=== PATIENT | female | born 1950 | race Caucasian/White ===

== ENCOUNTER 2016-07-02 16:13 | Observation (INO) ==
[2016-07-02] MEDS ORDERED: Ipratropium/Albuterol Neb 3 ML IH ONE (16:19)
[2016-07-02] MEDS ORDERED: Levofloxacin 500 MG/100 ML 500 MG/100 ML BAG IVPB ONE (16:25)
[2016-07-02] MEDS ORDERED: 0.9 % Sodium Chloride 1,000 ML IVC ONE (16:25)
--- NOTE | 2016-07-02 16:25 | Emergency Department Note ---
Disposition Clinical Impression: Acute exacerbation of chronic obstructive airways disease Disposition: Admitted As Inpatient Condition: Fair Forms: ED Satisfaction Letter Time of Disposition: 17:29 SOB HPI - General Chief Complaint: ED Shortness of Breath/Dyspnea Stated Complaint: short of breath Time Seen by Provider: 07/02/16 16:19 Source: patient Mode of arrival: ambulatory Limitations: no limitations Nursing Notes Reviewed: Yes Vital Signs Reviewed: Yes - History of Present Illness MayMay 30 patient had a similar episode now presents to the emergency room is having increasing shortness of breath no relief with DuoNeb started last evening has done multiple aerosols since then she denies a fever chills lightheadedness dizziness as a chest pain just dyspnea abdominal pain or discomfort denies any diarrhea melena hematochezia or hematemesis Pt Subjective Complaint: shortness of breath Onset (ago): day(s) (1) Context: recent illness (1 month ago) Severity: moderate Consistency/Duration: constant, gradually worsening Improves with: bronchodilators Worsens with: movement Known history of: COPD Associated symptoms: Reports: cough, wheezing, orthopnea. Denies: chest pain, pain with inspiration, fever, sputum production, lower extremity pain, polyuria , polydipsia, parasthesias, palpitations, hemoptysis, diaphoresis, nausea/ vomiting, syncope, abdominal pain, rash, sense of impending doom Treatment prior to arrival: bronchodilator Cough present: No Sputum production: No - Related Data Home Medications Medication Instructions Recorded Confirmed Aspirin 81 mg PO DAILY 05/24/16 07/02/16 Hydrochlorothiazide 25 mg PO DAILY 05/24/16 07/02/16 Loratadine [Allergy Relief] 10 mg PO DAILY PRN 05/24/16 07/02/16 Metoprolol XL (24 HR) Succ [Toprol 25 mg PO DAILY 05/24/16 07/02/16 Xl] Previous Rx's Medication Instructions Recorded Budesonide/Formoterol 80/4.5 2 puff IH BIDR #1 inhaler 05/26/16 [Symbicort 80/4.5] Nicotine Patch [Nicoderm] 7 mg TD DAILY #30 patch.td24 05/26/16 Allergies Allergy/AdvReac Type Severity Reaction Status Date / Time Amoxicillin [From Augmentin] Allergy See Verified 05/24/16 03:50 Comments clavulanic acid Allergy See Verified 05/24/16 03:50 [From Augmentin] Comments Constitutional: Reports: weakness. Denies: fever, chills Eyes: Denies: vision change ENT ED: Denies: ear pain, throat pain Cardiovascular: Reports: dyspnea on exertion. Denies: chest pain, palpitations , syncope Respiratory: Reports: dyspnea, wheezes Gastrointestinal: Denies: abdominal pain, nausea, vomiting Genitourinary: Denies: urgency, dysuria, frequency Musculoskeletal: Denies: back pain, neck pain Integumentary: Denies: rash Neurological: Denies: headache Psychiatric: Denies: anxiety Endocrine: Denies: fatigue Hematological/Lymphatic: Denies: easy bleeding Allergic/Immunologic: Denies: facial swelling Past Medical History - Past Medical History Attestation: Yes The following information was validated with the patient. Source: patient, old records reviewed, nursing notes reviewed Medical history: Reports: hyperlipidemia, hypertension Surgical history: Reports: other Psychiatric history: Reports: no psych history - Social History Smoking Status: Current every day smoker Smokeless Tobacco Status: No Alcohol use: Reports: rarely Drug use: Reports: none Physical Exam - General Limitations: no limitations General appearance: alert, in no apparent distress, anxious - Head Head exam: atraumatic, normocephalic, normal inspection - Eye Eye exam: Present: normal appearance, PERRL, EOMI - ENT ENT exam: normal exam, normal oropharynx, mucous membranes moist, TM's normal bilaterally, normal external ear exam - Neck Neck exam: Present: normal inspection, full ROM, trachea midline - Chest Chest inspection: Present: normal inspection, symmetric chest wall rise - Respiratory Respiratory exam: Present: wheezes, prolonged expiratory phase - Cardiovascular Cardiovascular exam: Present: tachycardia, normal heart sounds - Abdominal Exam Abdominal exam: Present: soft, Non-Tender, normal bowel sounds. Absent: mass, pulsatile mass - Extremities Exam Extremities exam: Present: normal inspection, full ROM, normal capillary refill. Absent: joint swelling - Expanded Lower Extremity Exam Gait: observed and normal - Back Exam Back exam: Present: normal inspection, full ROM. Absent: muscle spasm - Neurological Exam Neurological exam: Present: alert, oriented X3, CN II-XII intact - Psychiatric Psychiatric exam: Present: normal affect, normal mood - Skin Skin exam: Present: warm, dry, intact, normal color Course Course Narrative: Patient seen and examined given DuoNeb with marked improvement she was also given methylprednisolone awaiting chest x-ray and laboratory results - Reevaluation(s) Reevaluation #1: She just slowed shut slight improvement after aerosol treatment she will need to be admitted for observation services Dr. Duron he has agreed transferred to [facility] Shortness of Breath/Dyspnea - Differential Diagnosis Likely: acute exacerbation of chronic obstructive airways disease, pneumonia - Medical Records Medical records reviewed: Yes I reviewed the patient's medical records. - Lab Data Lab results reviewed: Yes I reviewed the patient's lab results. - Radiology Data Radiology results reviewed: Yes I reviewed the patient's radiology results. ITS Impressions Chest X-Ray 07/02/16 16:19 IMPRESSION: Body habitus limits evaluation. Mild bibasilar opacities, favored to represent atelectasis. D/ / Renato Schneider MD / Renato Schneider MD Interpreting Provider: Renato Schneider MD - EKG Data EKG attestation: Yes I reviewed and interpreted this EKG. EKG results narrative: Sinus tach rate 123 AL 173 QRS 87 QT 305 axis LV Critical Care Time Critical Care Time: No
[2016-07-02 16:41] LABS: Basophils # 0.1 K/mcL (0.0-0.2); Basophils % 0.3 %; Eosinophils # 0.6 K/mcL (0.0-0.6); Eosinophils % 3.8 %; Hematocrit 42.9 % (35.3-44.9); Hemoglobin 14.9 g/dL (11.5-15.4); Immature Granulocytes % 0.5 % (0-4); Lymphocytes # 2.5 K/mcL (0.6-4.6); Lymphocytes % 16.7 %; Mean Corpuscular HGB Conc 34.7 g/dL (31.6-35.5); Mean Corpuscular Hemoglobin 31.6 pg (28.0-33.3); Mean Corpuscular Volume 90.9 fL (83.0-100.0); Mean Platelet Volume 9.9 fL (9.4-12.4); Monocytes # 0.9 K/mcL (0.0-1.3); Monocytes % 6.2 %; Platelet Count 378 K/mcL (140-400); Red Blood Count 4.72 M/mcL (3.82-4.97); Red Cell Distribution Width 13.3 % (11.5-14.5); Segmented Neutrophils % 72.5 %
[2016-07-02 16:50] LABS: INR 1.1; Prothrombin Time 12.1 Seconds (9.4-12.1)
[2016-07-02 16:54] LABS: BUN/Creatinine Ratio 14 (6-26); Blood Urea Nitrogen 10 mg/dL (7-20); Calcium 9.3 mg/dL (8.6-10.8); Carbon Dioxide 24 mEq/L (19-29); Chloride 103 mEq/L (98-109); Glucose 114 mg/dL (70-99); Osmolality,Calculated 292 (280-300); Potassium 3.8 mEq/L (3.5-4.5); Sodium 141 mEq/L (136-145); eGFR For African Americans > 60 (> 60); eGFR For Non-African Americans > 60 (> 60)
[2016-07-02] MEDS ORDERED: *HR* HYDROmorphone (PF) 1 MG/ML SYRINGE IVP ONE (17:31)
[2016-07-02] MEDS ORDERED: Ondansetron 4 MG/2 ML VIAL IVP ONE (17:31)
[2016-07-02] MEDS ORDERED: *HR* OxyCODONE Immed Rel 5 MG TABLET PO PRN (19:49)
[2016-07-02] MEDS ORDERED: Albuterol 2.5 MG/3 ML NEBULIZER IH PRN (19:49)
[2016-07-02] MEDS ORDERED: Ondansetron 4 MG/2 ML VIAL IVP PRN (19:49)
[2016-07-02] MEDS ORDERED: Loratadine 10 MG TABLET PO PRN (19:49)
[2016-07-02] MEDS ORDERED: Naloxone 0.4 MG/ML INJ IVP PRN (19:49)
[2016-07-02] MEDS: 0.9 % Sodium Chloride 1,000 ML IVC SCH (23:22)
[2016-07-02] MEDS: Ipratropium/Albuterol Neb 3 ML IH SCH (23:31)
[2016-07-03 05:18] LABS: Basophils % 0.1 %; Hematocrit 39.1 % (35.3-44.9); Hemoglobin 13.4 g/dL (11.5-15.4); Immature Granulocytes % 0.7 % (0-4); Lymphocytes % 8.2 %; Mean Corpuscular HGB Conc 34.3 g/dL (31.6-35.5); Mean Corpuscular Hemoglobin 31.8 pg (28.0-33.3); Mean Corpuscular Volume 92.9 fL (83.0-100.0); Mean Platelet Volume 10.3 fL (9.4-12.4); Monocytes # 0.1 K/mcL (0.0-1.3); Monocytes % 0.4 %; Neutrophils # 10.7 K/mcL (1.6-8.9); Platelet Count 350 K/mcL (140-400); Red Blood Count 4.21 M/mcL (3.82-4.97); Red Cell Distribution Width 13.7 % (11.5-14.5); Segmented Neutrophils % 90.6 %
[2016-07-03 05:19] LABS: INR 1.2; Prothrombin Time 12.5 Seconds (9.4-12.1)
[2016-07-03 05:21] LABS: Activated Partial Thrombo Time 30.3 Seconds (26.0-36.0)
[2016-07-03 05:36] LABS: BUN/Creatinine Ratio 14 (6-26); Blood Urea Nitrogen 10 mg/dL (7-20); Calcium 8.7 mg/dL (8.6-10.8); Carbon Dioxide 22 mEq/L (19-29); Chloride 102 mEq/L (98-109); Glucose 211 mg/dL (70-99); Osmolality,Calculated 291 (280-300); Potassium 3.2 mEq/L (3.5-4.5); Sodium 138 mEq/L (136-145); eGFR For African Americans > 60 (> 60); eGFR For Non-African Americans > 60 (> 60)
[2016-07-03] MEDS: Ipratropium/Albuterol Neb 3 ML IH SCH ×2 (05:50→11:26)
[2016-07-03] MEDS: 0.9 % Sodium Chloride 1,000 ML IVC SCH (06:51)
[2016-07-03] MEDS ORDERED: Aspirin 81 MG TAB.CHEW PO SCH (09:00)
[2016-07-03] MEDS ORDERED: Nicotine 7 MG PATCH.TD24 TD SCH (09:00)
[2016-07-03] MEDS ORDERED: Metoprolol XL (24 HR) Succ 25 MG TAB.ER.24H PO SCH (09:00)
--- NOTE | 2016-07-03 10:53 | Internal Med History&Physical ---
Date of Encounter: 07/03/16 Time of Encounter: 10:25 Assessment and Plan (1) Acute bronchitis Current visit: No Status: Acute We will order CT of chest since she has been hospitalized twice in the last 6 weeks and has history of smoking. Qualifiers: Bronchitis organism: unspecified organism Qualified Code(s): J20.9 - Acute bronchitis, unspecified (2) Hypertension Current visit: No Status: Acute We will decrease HCTZ and increase Toprol-XL since she has occasional sensation of tachycardia. Qualifiers: Qualified Code(s): I10 - Essential (primary) hypertension Internal Medicine - H&P: HPI Chief complaint: Dyspnea Admitted From: Home Plans for Post Hospital Care: Home History of present illness: Ms. Leigh is a 65 year old female who came to emergency room stating she had onset of dyspnea the evening of July 01 while at leisure. The onset was fairly sudden and was associated with a slight headache. She used albuterol nebs regularly over the next few hours without resolution so decided to come to emergency room. She was evaluated felt to have exacerbation of COPD and was admitted to [facility] floor for ongoing care needs. She states she feels improved at the present time but not quite back to her baseline. Her respiratory history is significant for having smoked from age 24 until quitting one month ago at the time of hospitalization at [facility] May 2016. She states she was diagnosed with COPD at that visit although pulmonary function tests and CT chest were not performed. She does not wear home oxygen. Past Med Surg Social Fam HX - Past Medical History Medical history: COPD, hyperlipidemia, hypertension Psychiatric history: no psych history - Past Surgical History Surgical History: other - Social History Smoking Status: Former smoker Packs per day: LESS THAN A PACK IN 4 DAYS-SOCIAL SMOKER PREVIOUSLY Smokeless Tobacco Status: No Alcohol use: rarely Drug use: none - Family History Mother Living Status: Hx Family Cancer: Yes (Cervical Cancer) Father Living Status: Hx Family Cardiac Disorders: Yes Internal Medicine - H&P: Meds Aspirin 81 mg PO DAILY 05/24/16 [History] Hydrochlorothiazide 25 mg PO DAILY 05/24/16 [History] Loratadine [Allergy Relief] 10 mg PO DAILY PRN 05/24/16 [History] Metoprolol XL (24 HR) Succ [Toprol Xl] 25 mg PO DAILY 05/24/16 [History] Budesonide/Formoterol 80/4.5 [Symbicort 80/4.5] 2 puff IH BIDR #1 inhaler 05/26 [Rx] Nicotine Patch [Nicoderm] 7 mg TD DAILY #30 patch.td24 05/26/16 [Rx] Allergies Amoxicillin [From Augmentin] Allergy (Verified 05/24/16 03:50) See Comments clavulanic acid [From Augmentin] Allergy (Verified 05/24/16 03:50) See Comments All Systems PM: A 10-system review of systems was performed and is negative for pertinent findings except as documented above in the HPI. Review of systems: Gen.: She states her weight has increased approximately 35 pounds in the past year, unintentionally. She attributes this to decreased exercise and increased food intake Cardiovascular: She has a history of hypertension but denies CA heart failure angina DVT or pulmonary embolus. Respiratory: As per history of present illness GI: She denies disorders of her liver gallbladder or exocrine pancreas : She denies hematuria dysuria or kidney stones Neurologic: She denies large distribution strokes or seizures. Endocrine: She has hyperlipidemia denies diabetes. She had thyroid nodules biopsied a few months ago with benign findings. Hematology/oncology: She denies blood disorders cancers or anemia Psychiatric: She has occasional feelings of depression but does not take medication at this time. She denies other mental health issues Musculoskeletal: She denies arthritis gout or other bone joint or muscle disorders. - Constitutional Vitals: Temp Pulse Resp BP Pulse Ox 98.1 F 98 18 124/62 94 L 07/03/16 10:28 07/03/16 10:28 07/03/16 10:28 07/03/16 10:28 07/03/16 10:28 Exam: Gen.: She is a well-developed well-nourished female who appears in minimal distress at present time. HEENT: Head is atraumatic and normocephalic. Eyes: EOMI. There is no scleral icterus. Mouth: Mucosa is moist. Neck: Supple and nontender. There is no thyromegaly or adenopathy noted. Heart: Regular without murmurs gallops or ectopics. Lungs: No wheezes or crackles are heard. Abdomen: Soft and nontender. No masses or guarding noted. Extremities: There is no cyanosis edema or clubbing noted. Dorsalis pedis and posttibial pulses are trace palpable bilaterally. Neurologic: Mental status: She is talkative and a good historian. Cranial nerves: Smile is symmetric. Forehead wrinkles bilaterally. Tongue protrudes midline. EOMI. Motor: There is no pronator drift. Cerebellar: Finger to nose is intact bilaterally. Skin: Warm and dry Internal Med - H&P Results - Labs CBC & Chem 7: 07/03/16 04:15 07/03/16 04:15 Labs: Short CBC 07/03/16 Range/Units 04:15 WBC 11.8 H (4.3-11.1) K/mcL Hgb 13.4 D (11.5-15.4) g/dL Hct 39.1 (35.3-44.9) % Plt Count 350 (140-400) K/mcL Neutrophils # 10.7 H (1.6-8.9) K/mcL BMP 07/03/16 04:15 Sodium 138 Potassium 3.2 L Chloride 102 Carbon Dioxide 22 BUN 10 Creatinine 0.73 Glucose 211 H Calcium 8.7 - VTE Documentation of Mechanical Device: Graduated compression elastic hosiery
--- NOTE | 2016-07-03 14:15 | Electrocardiograph Report ---
[address] [place], [place] [address] Test Date: 2016-07-02 Pat Name: Bibi Leigh Department: [id number] Room: [facility] Gender: F Night Assistant: : 1950 Requested By: Judith Lim Order Number: [id number] Reading MD: Fabienne Castro Measurements Intervals [place] Rate: 123 P: 69 ME: 173 QRS: 55 QRSD: 87 T: 44 QT: 305 QTc: 378 Interpretive Statements SINUS TACHYCARDIA ABNORMAL RHYTHM ECG Electronically Signed On 07-03-2016 14:13:32 EST by Fabienne Castro
[2016-07-03 15:11] VITALS: BP 126/58
--- NOTE | 2016-07-03 16:57 | Discharge Summary ---
Date of Encounter: 07/03/16 Time of Encounter: 16:45 - Discharge Diagnosis (1) Acute bronchitis Priority: Primary Status: Acute Qualifiers: Bronchitis organism: unspecified organism Qualified Code(s): J20.9 - Acute bronchitis, unspecified (2) Hypertension Priority: Secondary Status: Acute Qualifiers: Qualified Code(s): I10 - Essential (primary) hypertension - Discharge Medications Prescriptions: Metoprolol XL (24 HR) Succ [Toprol XL] 50 mg PO DAILY #30 tab.er.24h Home Medications: Aspirin 81 mg PO DAILY 05/24/16 [History] Loratadine [Allergy Relief] 10 mg PO DAILY PRN 05/24/16 [History] Budesonide/Formoterol 80/4.5 [Symbicort 80/4.5] 2 puff IH BIDR #1 inhaler 05/26 [Rx] Nicotine Patch [Nicoderm] 7 mg TD DAILY #30 patch.td24 05/26/16 [Rx] Hydrochlorothiazide 12.5 mg PO DAILY #0 07/03/16 [Rx] Metoprolol XL (24 HR) Succ [Toprol XL] 50 mg PO DAILY #30 tab.er.24h 07/03/16 [ Rx] Allergies/Adverse Reactions: Allergies Amoxicillin [From Augmentin] Allergy (Verified 05/24/16 03:50) See Comments clavulanic acid [From Augmentin] Allergy (Verified 05/24/16 03:50) See Comments Procedures/tests Complete & Pending: Procedures Performed prior 72 hours Category Date Time Status CT chest wo con [CT] Routine Cat Scan 07/03/16 12:02 Draft Date of admission: 07/02/16 17:48 Primary care physician: Yoanna Fernandes CNP - Patient Status Disposition: Home, Self-Care Condition: Fair Overall status at discharge: patient is progressing back to baseline - Discharge Instructions Follow Up With: Yoanna Fernandes [employer]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 Leigh is a 65 year old female who came to emergency room stating she had onset of dyspnea the evening of July 01 while at leisure. The onset was fairly sudden and was associated with a slight headache. She used albuterol nebs regularly over the next few hours without resolution so decided to come to emergency room. She was evaluated felt to have exacerbation of COPD and was admitted to [facility] floor for ongoing care needs. Initial orders were written by the emergency room physician. I saw her morning of July 03 and performed the history and physical. Chest CT was ordered since she had been hospitalized twice in the last 6 weeks and has smoking history. Chest CT did not show significant pathology. D-dimer returned 572 which is within normal range for her age. Room air oximetry did not show hypoxemia. In the afternoon of July 03 she felt stable for discharge home. She will follow with primary care provider Yoanna Fernandes CNP within one week. Because of her occasional sensation of tachycardia I increased her Toprol-XL to 50 mg daily and reduced HCTZ to 12.5 mg daily. - Time Spent with Patient Total time spent providing and/or coordinating discharge services: - Constitutional Vitals: Temp Pulse Resp BP Pulse Ox 97.8 F 64 16 126/58 96 07/03/16 15:11 07/03/16 15:11 07/03/16 15:11 07/03/16 15:11 07/03/16 15:11 - VTE Documentation of Mechanical Device: Graduated compression elastic hosiery
[2016-07-03] MEDS ORDERED: Levofloxacin 500 MG/100 ML 500 MG/100 ML BAG IVPB SCH (17:00)
[2016-07-03] MEDS ORDERED: FLU VACC QS2016-17 36MOS UP/PF 0.5 ML SYRINGE IM ONE (17:24)
== END 2016-07-03 18:30 | disposition home or self-care (01) ==
LOC: EMEROOPIK 16:13 → INPPIK 16:13
PROVIDERS: ADMIT Internal Medicine; ATTEND Internal Medicine

== ENCOUNTER 2021-06-20 18:33 | Inpatient (IN) ==
[2021-06-20] MEDS ORDERED: Ipratropium/Albuterol Neb 3 ML IH ONE (18:46)
[2021-06-20] MEDS ORDERED: methylPREDNISolone 125 MG/2 ML VIAL IVP ONE (18:46)
[2021-06-20 19:19] LABS: Bilirubin,Urine Negative (Negative); Blood,Urine Negative (Negative); Clarity,Urine Clear (Clear); Color,Urine Yellow (Yellow); Glucose,Urine (UA) Normal (Normal); Ketones,Urine Negative (Negative); Leukocyte Esterase,Urine Negative (Negative); Nitrite,Urine Negative (Negative); PH,Urine 5.5 pH Units (5.0-8.0); Protein,Urine Negative (Neg-Trace); Urobilinogen,Urine Normal (Normal)
[2021-06-20 19:23] LABS: INR 1.1; Prothrombin Time 12.7 Seconds (9.4-12.1)
[2021-06-20 19:25] LABS: Activated Partial Thrombo Time 31.4 Seconds (26.0-36.0)
[2021-06-20 19:30] LABS: BUN/Creatinine Ratio 17 (6-26); Blood Urea Nitrogen 10 mg/dL (8-23); Calcium 9.5 mg/dL (8.6-10.3); Carbon Dioxide 28 mEq/L (23-29); Chloride 98 mEq/L (98-107); Glucose 129 mg/dL (70-105); Osmolality,Calculated 283 (280-300); Potassium 3.1 mEq/L (3.5-5.1); Sodium 136 mEq/L (136-145); eGFR For African Americans > 60 (> 60); eGFR For Non-African Americans > 60 (> 60)
[2021-06-20] MEDS ORDERED: Isovue-370 500 ML BOTTLE IVP ONE (19:31)
[2021-06-20] MEDS ORDERED: 0.9 % Sodium Chloride 1,000 ML IVC ONE (19:31)
[2021-06-20] MEDS ORDERED: Potassium Chloride Elixir 20 MEQ/15 ML UDC PO ONE (19:31)
[2021-06-20 19:34] LABS: Troponin I < 0.03 ng/mL (< 0.04)
[2021-06-20 20:23] LABS: Basophils # 0.1 K/mcL (0.0-0.2); Basophils % 0.5 %; Eosinophils # 0.7 K/mcL (0.0-0.6); Eosinophils % 4.6 %; Hematocrit 44.8 % (35.3-44.9); Hemoglobin 15.3 g/dL (11.5-15.4); Immature Granulocytes % 0.5 % (0-4); Lymphocytes # 2.8 K/mcL (0.6-4.6); Lymphocytes % 18.6 %; Mean Corpuscular HGB Conc 34.2 g/dL (31.6-35.5); Mean Corpuscular Hemoglobin 30.9 pg (28.0-33.3); Mean Corpuscular Volume 90.5 fL (83.0-100.0); Mean Platelet Volume 10.2 fL (9.4-12.4); Monocytes # 1.1 K/mcL (0.0-1.3); Monocytes % 7.2 %; Platelet Count 468 K/mcL (140-400); Red Blood Count 4.95 M/mcL (3.82-4.97); Red Cell Distribution Width 13.3 % (11.5-14.5); Segmented Neutrophils % 68.6 %; White Blood Count 15.1 K/mcL (4.3-11.1)
[2021-06-20 20:24] LABS: Neutrophils # 10.4 K/mcL (1.6-8.9)
[2021-06-20] MEDS ORDERED: Azithromycin 500 MG in 0.9 % Sodium Chloride 250 ML IVPB ONE (22:02)
[2021-06-20] MEDS ORDERED: Naloxone 0.4 MG/ML INJ IVP PRN (22:02)
[2021-06-20] MEDS: 0.9 % Sodium Chloride 1,000 ML IVC SCH (23:25)
[2021-06-20] MEDS: Levalbuterol Neb 1.25 MG/3 ML IH SCH (23:59)
[2021-06-20] MEDS: Ipratropium Neb 0.5 MG NEBULIZER IH SCH (23:59)
[2021-06-21] MEDS: Ipratropium Neb 0.5 MG NEBULIZER IH SCH ×2 (04:33→07:57)
[2021-06-21] MEDS: Levalbuterol Neb 1.25 MG/3 ML IH SCH ×2 (04:33→07:57)
[2021-06-21] MEDS ORDERED: Acetaminophen 325 MG TABLET PO PRN (06:04)
[2021-06-21] MEDS ORDERED: Metoprolol XL (24 HR) Succ 25 MG TAB.ER.24H PO SCH (09:00)
[2021-06-21] MEDS: 0.9 % Sodium Chloride 1,000 ML IVC SCH (09:19)
[2021-06-21] MEDS: Aspirin 81 MG TAB.CHEW PO SCH (09:20)
[2021-06-21] MEDS: hydroCHLOROthiazide 25 MG TABLET PO SCH (09:21)
[2021-06-21] MEDS: Budesonide/Formoterol 160/4.5 1 PUFF INH IH SCH ×2 (10:10→21:57)
[2021-06-21] MEDS ORDERED: MethylPREDNISolone 40 MG/ML VIAL IVP SCH ×2 (10:14→18:00)
[2021-06-21 10:40] LABS: Basophils % 0.1 %; Hematocrit 41.2 % (35.3-44.9); Hemoglobin 13.9 g/dL (11.5-15.4); Immature Granulocytes % 0.8 % (0-4); Lymphocytes # 1.5 K/mcL (0.6-4.6); Mean Corpuscular HGB Conc 33.7 g/dL (31.6-35.5); Mean Corpuscular Hemoglobin 30.5 pg (28.0-33.3); Mean Corpuscular Volume 90.5 fL (83.0-100.0); Mean Platelet Volume 9.8 fL (9.4-12.4); Monocytes # 0.4 K/mcL (0.0-1.3); Monocytes % 2.7 %; Neutrophils # 13.3 K/mcL (1.6-8.9); Platelet Count 415 K/mcL (140-400); Red Blood Count 4.55 M/mcL (3.82-4.97); Red Cell Distribution Width 13.5 % (11.5-14.5); Segmented Neutrophils % 86.4 %; White Blood Count 15.4 K/mcL (4.3-11.1)
[2021-06-21 10:53] LABS: BUN/Creatinine Ratio 16 (6-26); Blood Urea Nitrogen 9 mg/dL (8-23); Calcium 8.6 mg/dL (8.6-10.3); Carbon Dioxide 26 mEq/L (23-29); Chloride 101 mEq/L (98-107); Glucose 287 mg/dL (70-105); Magnesium 1.8 mg/dL (1.6-2.6); Osmolality,Calculated 291 (280-300); Potassium 3.8 mEq/L (3.5-5.1); Sodium 136 mEq/L (136-145); eGFR For African Americans > 60 (> 60); eGFR For Non-African Americans > 60 (> 60)
[2021-06-21] MEDS ORDERED: *HR* Metoprolol 5 MG/5 ML VIAL IVP ONE (11:04)
[2021-06-21 11:13] LABS: Thyroid Stimulating Hormone < 0.010 mcIU/mL (0.340-5.600)
[2021-06-21] MEDS ORDERED: Levalbuterol 1 PUFF INHALER IH PRN ×2 (11:33→13:18)
[2021-06-21] MEDS: Ipratropium 1 PUFF INHALER IH SCH ×3 (11:40→21:58)
[2021-06-21] MEDS: Levalbuterol 1 PUFF INHALER IH SCH ×3 (11:40→21:57)
[2021-06-21] MEDS ORDERED: Dextrose Gel 15 GM/37.5 ML TUBE PO PRN ×2 (11:52)
[2021-06-21] MEDS ORDERED: D5% in Water 1,000 ML IVC PRN (11:52)
[2021-06-21] MEDS ORDERED: *HR* Dextrose 50 % in Water (Syg) 50 ML SYRINGE IVP PRN (11:52)
[2021-06-21] MEDS ORDERED: Perflutren Lipid Microsphere 1.3 ML in 0.9 % Sodium Chloride 8.7 ML IVP PRN (13:37)
[2021-06-21] MEDS ORDERED: *HR* LORazepam 0.5 MG TABLET PO PRN (13:39)
[2021-06-21 14:51] LABS: Adenovirus Not Detected (Not Detect); Bordetella Pertussis Not Detected (Not Detect); Chlamydophila pneumoniae Not Detected (Not Detect); Coronavirus 229E Not Detected (Not Detect); Coronavirus HKU1 Not Detected (Not Detect); Coronavirus NL63 Not Detected (Not Detect); Coronavirus OC43 Not Detected (Not Detect); Human Metapneumovirus Not Detected (Not Detect); Human Rhinovirus/Enterovirus Not Detected (Not Detect); Influenza A Subtype 2009 H1 Not Detected (Not Detect); Influenza B Not Detected (Not Detect); Mycoplasma pneumoniae Not Detected (Not Detect); Parainfluenza Virus 1 Not Detected (Not Detect); Parainfluenza Virus 2 Not Detected (Not Detect); Parainfluenza Virus 3 Not Detected (Not Detect); Parainfluenza Virus 4 Not Detected (Not Detect); Respiratory Syncytial Virus Not Detected (Not Detect); SARS-CoV-2 DETECTED (Not Detect)
[2021-06-21] MEDS: Dexamethasone Sodium Phos/PF 10 MG/ML VIAL IVP SCH (17:14)
[2021-06-21] MEDS: Insulin LISPRO 300 UNITS/3 ML VIAL SUBQ SCH ×2 (17:19→21:35)
[2021-06-21 19:20] LABS: Estimated Average Glucose 123 mg/dl; Hemoglobin A1C 5.9 %
[2021-06-21] MEDS: Azithromycin 500 MG in 0.9 % Sodium Chloride 250 ML IVPB SCH (21:34)
[2021-06-22] MEDS: Levalbuterol 1 PUFF INHALER IH SCH ×4 (04:52→21:26)
[2021-06-22] MEDS: Ipratropium 1 PUFF INHALER IH SCH ×4 (04:52→21:26)
[2021-06-22 07:37] LABS: Hematocrit 38.9 % (35.3-44.9); Mean Corpuscular HGB Conc 33.4 g/dL (31.6-35.5); Mean Corpuscular Hemoglobin 30.7 pg (28.0-33.3); Mean Corpuscular Volume 91.7 fL (83.0-100.0); Platelet Count 394 K/mcL (140-400); Red Blood Count 4.24 M/mcL (3.82-4.97); Red Cell Distribution Width 13.9 % (11.5-14.5); White Blood Count 20.8 K/mcL (4.3-11.1)
[2021-06-22] MEDS: Insulin LISPRO 300 UNITS/3 ML VIAL SUBQ SCH ×4 (08:23→21:17)
[2021-06-22 08:24] LABS: BUN/Creatinine Ratio 24 (6-26); Blood Urea Nitrogen 12 mg/dL (8-23); Calcium 8.6 mg/dL (8.6-10.3); Carbon Dioxide 29 mEq/L (23-29); Chloride 102 mEq/L (98-107); Glucose 132 mg/dL (70-105); Magnesium 2.1 mg/dL (1.6-2.6); Osmolality,Calculated 286 (280-300); Potassium 4.1 mEq/L (3.5-5.1); Sodium 137 mEq/L (136-145); eGFR For African Americans > 60 (> 60); eGFR For Non-African Americans > 60 (> 60)
[2021-06-22] MEDS: Aspirin 81 MG TAB.CHEW PO SCH (09:01)
[2021-06-22] MEDS: hydroCHLOROthiazide 25 MG TABLET PO SCH (09:01)
[2021-06-22] MEDS: cefTRIAXone 1,000 MG in 0.9 % Sodium Chloride Mini Bag 100 ML IVPB SCH (09:03)
[2021-06-22] MEDS: Dexamethasone Sodium Phos/PF 10 MG/ML VIAL IVP SCH (09:03)
[2021-06-22] MEDS: Metoprolol XL (24 HR) Succ 25 MG TAB.ER.24H PO SCH (09:03)
[2021-06-22 09:19] LABS: Ferritin 104 ng/mL (10-120)
[2021-06-22 10:49] LABS: C-Reactive Protein < 5 mg/L (Less than 10)
[2021-06-22] MEDS: Budesonide/Formoterol 160/4.5 1 PUFF INH IH SCH ×2 (10:53→21:27)
[2021-06-22] MEDS ORDERED: Metoprolol XL (24 HR) Succ 25 MG TAB.ER.24H PO ONE (15:00)
[2021-06-22] MEDS: *HR* Enoxaparin 40 MG/0.4 ML SYRINGE SQ SCH (15:25)
[2021-06-22] MEDS: Azithromycin 500 MG in 0.9 % Sodium Chloride 250 ML IVPB SCH ×2 (21:13→23:34)
[2021-06-22] MEDS ORDERED: 0.9 % Sodium Chloride 250 ML ONE (21:50)
[2021-06-23] MEDS: Levalbuterol 1 PUFF INHALER IH SCH ×2 (04:15→10:05)
[2021-06-23] MEDS: Ipratropium 1 PUFF INHALER IH SCH ×2 (04:16→10:04)
[2021-06-23] MEDS: *HR* Enoxaparin 40 MG/0.4 ML SYRINGE SQ SCH (04:56)
[2021-06-23] MEDS: Insulin LISPRO 300 UNITS/3 ML VIAL SUBQ SCH ×2 (07:45→11:33)
[2021-06-23 08:16] LABS: Hematocrit 39.9 % (35.3-44.9); Hemoglobin 13.3 g/dL (11.5-15.4); Mean Corpuscular HGB Conc 33.3 g/dL (31.6-35.5); Mean Corpuscular Hemoglobin 30.6 pg (28.0-33.3); Mean Corpuscular Volume 91.7 fL (83.0-100.0); Mean Platelet Volume 9.8 fL (9.4-12.4); Platelet Count 380 K/mcL (140-400); Red Blood Count 4.35 M/mcL (3.82-4.97); Red Cell Distribution Width 13.5 % (11.5-14.5)
[2021-06-23 09:05] LABS: BUN/Creatinine Ratio 28 (6-26); Blood Urea Nitrogen 17 mg/dL (8-23); Calcium 8.7 mg/dL (8.6-10.3); Carbon Dioxide 31 mEq/L (23-29); Chloride 100 mEq/L (98-107); Glucose 100 mg/dL (70-105); Osmolality,Calculated 288 (280-300); Potassium 3.7 mEq/L (3.5-5.1); Sodium 138 mEq/L (136-145); eGFR For African Americans > 60 (> 60); eGFR For Non-African Americans > 60 (> 60)
[2021-06-23] MEDS: cefTRIAXone 1,000 MG in 0.9 % Sodium Chloride Mini Bag 100 ML IVPB SCH (09:21)
[2021-06-23] MEDS: Aspirin 81 MG TAB.CHEW PO SCH (09:23)
[2021-06-23] MEDS: Dexamethasone Sodium Phos/PF 10 MG/ML VIAL IVP SCH (09:23)
[2021-06-23] MEDS: hydroCHLOROthiazide 25 MG TABLET PO SCH (09:24)
[2021-06-23] MEDS: Metoprolol XL (24 HR) Succ 25 MG TAB.ER.24H PO SCH (09:24)
[2021-06-23] MEDS: Budesonide/Formoterol 160/4.5 1 PUFF INH IH SCH (10:03)
[2021-06-23 11:28] VITALS: BP 123/62; PULSE 75; RESP 20; TEMP 98.7; O2SAT 95
== END 2021-06-23 13:42 | disposition home or self-care (01) | DRG 177 ==
LOC: INPPIK 18:33 → EMEROOPIK 18:33 → INPPIK 21:51
PROVIDERS: ADMIT Internal Medicine; ATTEND Internal Medicine